=== PATIENT | female | born 1940 | race Caucasian/White ===

== ENCOUNTER 2017-11-18 12:11 | Outpatient (REF) | payer MEDICARE, MEDICAID, SELFPAY | END 2017-11-18 12:31 | LOC: LBN 12:11 | PROVIDERS: PCP Internal Medicine; Visit Provider Nurse Practitioner Family | DX: N39.0 Urinary tract infection, site not specified (principal) | CPT/HCPCS: 87077; 87086; 87186 ==

== ENCOUNTER 2018-01-01 14:23 | Outpatient (REF) | payer MEDICARE, MEDICAID, SELFPAY ==
[2018-01-01 20:03] LABS: HGB 11.2 g/dL (12.0-15.5); Mean Corpuscular Hemoglobin 30.2 pg (27.0-33.0); Mean Corpuscular Volume 94.3 fL (80-95); Mean Platelet Volume 11.6 fL (8.0-11.0); Platelet Count 232 x1000/uL (130-400); RBC 3.71 m/cumm (4.00-5.20); RBC Distribution Width 13.5 % (11.7-14.6); White Blood Cell Count 4.48 k/cumm (4.4-10.8)
[2018-01-01 20:36] LABS: Anion Gap 8.9 mmol/L (3-11); BUN 14 mg/dL (7-18); C-Reactive Protein 0.87 mg/dL (0.0-0.3); CO2 29.1 mmol/L (21.0-32.0); Chloride 102 mmol/L (98-107); Glucose 107 mg/dL (70-100); Potassium 4.3 mmol/L (3.5-5.1); Sodium 140 mmol/L (136-145)
[2018-01-01 22:21] LABS: ESR 10 MM/HR (0-30)
== END 2018-01-01 14:43 ==
LOC: NCHCN 14:23
PROVIDERS: PCP Internal Medicine; Visit Provider Internal Medicine
DX: I87.2 Venous insufficiency (chronic) (peripheral) (principal); M48.00 Spinal stenosis, site unspecified; M31.6 Other giant cell arteritis; E11.9 Type 2 diabetes mellitus without complications
CPT/HCPCS: 80048; 85027; 85652; 86140

== ENCOUNTER 2018-03-02 18:17 | Outpatient (REF) | payer MEDICARE, MEDICAID, SELFPAY ==
[2018-03-02 19:17] LABS: HCT 35.6 % (36.0-46.0); HGB 11.4 g/dL (12.0-15.5); Mean Corpuscular Hemoglobin 30.5 pg (27.0-33.0); Mean Corpuscular Volume 95.2 fL (80-95); Mean Platelet Volume 11.7 fL (8.0-11.0); Platelet Count 232 x1000/uL (130-400); RBC 3.74 m/cumm (4.00-5.20); RBC Distribution Width 13.3 % (11.7-14.6); White Blood Cell Count 5.24 k/cumm (4.4-10.8)
[2018-03-02 20:38] LABS: ESR 7 MM/HR (0-30)
[2018-03-03 16:03] LABS: CRP, High Sensitivity 5.09 mg/L
== END 2018-03-02 18:37 ==
LOC: NCHCN 18:17
PROVIDERS: PCP Internal Medicine; Visit Provider Internal Medicine
DX: M31.6 Other giant cell arteritis (principal)
CPT/HCPCS: 85027; 85652; 86141

== ENCOUNTER 2018-07-30 15:24 | Outpatient (REF) | payer MEDICARE, MEDICAID, SELFPAY ==
[2018-07-30 18:55] LABS: ALT 17 U/L (12-78); Anion Gap 11.1 mmol/L (3-11); BUN 23 mg/dL (7-18); CO2 26.9 mmol/L (21.0-32.0); CREATININE 1.03 mg/dL (0.55-1.02); Calcium 8.9 mg/dL (8.5-10.1); Chloride 100 mmol/L (98-107); Estimated GFR 51.82 (mL/min/1.73m2); Glucose 114 mg/dL (70-100); LDL CHOLESTEROL 78 mg/dL (<100); Potassium 4.6 mmol/L (3.5-5.1); Sodium 138 mmol/L (136-145)
[2018-07-30 19:16] LABS: C-Reactive Protein 0.38 mg/dL (0.0-0.3)
[2018-07-30 19:36] LABS: ESR 8 MM/HR (0-30)
== END 2018-07-30 15:44 ==
LOC: NCHCN 15:24
PROVIDERS: PCP Internal Medicine; Visit Provider Internal Medicine
DX: E11.9 Type 2 diabetes mellitus without complications (principal); M31.6 Other giant cell arteritis; I87.2 Venous insufficiency (chronic) (peripheral); J40 Bronchitis, not specified as acute or chronic
CPT/HCPCS: 80048; 83721; 85652; 84460; 86140

== ENCOUNTER 2018-10-23 15:21 | Outpatient (REF) | payer MEDICARE, MEDICAID, SELFPAY ==
[2018-10-23 20:10] LABS: HCT 36.9 % (36.0-46.0); HGB 11.8 g/dL (12.0-15.5); Mean Corpuscular Hemoglobin 30.2 pg (27.0-33.0); Mean Corpuscular Volume 94.4 fL (80-95); Mean Platelet Volume 11.5 fL (8.0-11.0); Platelet Count 280 x1000/uL (130-400); RBC 3.91 m/cumm (4.00-5.20); RBC Distribution Width 12.9 % (11.7-14.6); White Blood Cell Count 5.92 k/cumm (4.4-10.8)
[2018-10-23 20:18] LABS: Anion Gap 9.3 mmol/L (3-11); BUN 7 mg/dL (7-18); C-Reactive Protein 1.47 mg/dL (0.0-0.3); CO2 26.7 mmol/L (21.0-32.0); CREATININE 1.09 mg/dL (0.55-1.02); Calcium 8.8 mg/dL (8.5-10.1); Chloride 102 mmol/L (98-107); Estimated GFR 48.55 (mL/min/1.73m2); Glucose 106 mg/dL (70-100); Potassium 4.8 mmol/L (3.5-5.1); Sodium 138 mmol/L (136-145); TSH 1.52 uIU/mL (0.36-3.74)
== END 2018-10-23 15:41 ==
LOC: NCHCN 15:21
PROVIDERS: PCP Internal Medicine; Visit Provider Internal Medicine
DX: M17.9 Osteoarthritis of knee, unspecified (principal); M31.6 Other giant cell arteritis; M48.061 Spinal stenosis, lumbar region without neurogenic claudication; E11.9 Type 2 diabetes mellitus without complications
CPT/HCPCS: 80048; 85027; 84443; 86140

== ENCOUNTER 2018-11-06 14:51 | Outpatient (REF) | payer MEDICARE, MEDICAID, SELFPAY | END 2018-11-06 15:11 | LOC: NCHCN 14:51 | PROVIDERS: PCP Internal Medicine; Visit Provider Internal Medicine | DX: R35.0 Frequency of micturition (principal) | CPT/HCPCS: 87077; 87086; 87186 ==

== ENCOUNTER 2018-12-10 12:12 | Outpatient (REF) | payer MEDICARE, MEDICAID, SELFPAY ==
[2018-12-10 19:08] LABS: HCT 36.6 % (36.0-46.0); HGB 11.8 g/dL (12.0-15.5); Mean Corp. HGB Concentration 32.2 g/dL (32.0-36.0); Mean Corpuscular Hemoglobin 30.5 pg (27.0-33.0); Mean Corpuscular Volume 94.6 fL (80-95); Mean Platelet Volume 10.8 fL (8.0-11.0); Platelet Count 285 x1000/uL (130-400); RBC 3.87 m/cumm (4.00-5.20); RBC Distribution Width 13.7 % (11.7-14.6); White Blood Cell Count 8.15 k/cumm (4.4-10.8)
[2018-12-10 19:55] LABS: ESR 12 mm/hr (0-30)
== END 2018-12-10 12:32 ==
LOC: NCHCN 12:12
PROVIDERS: PCP Internal Medicine; Visit Provider Internal Medicine
DX: M06.9 Rheumatoid arthritis, unspecified (principal)
CPT/HCPCS: 85027; 85652; 86140

== ENCOUNTER 2019-01-12 08:41 | Outpatient (REF) | payer MEDICARE, MEDICAID, SELFPAY | END 2019-01-12 09:01 | LOC: NCHCN 08:41 | PROVIDERS: PCP Internal Medicine; Visit Provider Nurse Practitioner Family | DX: N39.0 Urinary tract infection, site not specified (principal) | CPT/HCPCS: 87077; 87086; 87186 ==

== ENCOUNTER 2019-04-07 17:26 | Outpatient (REF) | payer MEDICARE, MEDICAID, SELFPAY ==
[2019-04-07 20:39] LABS: Bilirubin Small (Negative); Blood Large (Negative); Clarity Cloudy (Clear); Glucose Negative (Negative); Ketones Trace mg/dL (Negative); Leukocyte Esterase Negative (Negative); Nitrite Negative (Negative); Specific Gravity >= 1.030 (1.005-1.025); Urobilinogen 0.2 EU/dL (Up TO 0.2)
[2019-04-07 20:52] LABS: WBC 0-2 HPF (0-5)
[2019-04-07 20:56] LABS: Crystals Many Calcium Oxalate HPF (Negative)
[2019-04-07 20:57] LABS: C & S Indicated? No
== END 2019-04-07 17:46 ==
LOC: LBN 17:26
PROVIDERS: PCP Internal Medicine; Visit Provider Obstetrics & Gynecology Gynecology
DX: N39.0 Urinary tract infection, site not specified (principal)
CPT/HCPCS: 81003; 81015

== ENCOUNTER 2019-04-15 22:10 | Outpatient (REF) | payer MEDICARE, MEDICAID, SELFPAY ==
[2019-04-15 19:57] LABS: C-Reactive Protein 3.89 mg/dL (0.0-0.3)
[2019-04-15 20:50] LABS: ESR 19 mm/hr (0-30)
== END 2019-04-15 22:30 ==
LOC: NCHCN 22:10
PROVIDERS: PCP Internal Medicine; Visit Provider Internal Medicine
DX: M35.3 Polymyalgia rheumatica (principal)
CPT/HCPCS: 85652; 86140

== ENCOUNTER 2019-07-07 13:44 | Outpatient (REF) | payer MEDICARE, MEDICAID, SELFPAY ==
[2019-07-07 19:17] LABS: HCT 34.4 % (36.0-46.0); HGB 11.2 g/dL (12.0-15.5); Mean Corp. HGB Concentration 32.6 g/dL (32.0-36.0); Mean Corpuscular Hemoglobin 30.5 pg (27.0-33.0); Mean Corpuscular Volume 93.7 fL (80-95); Mean Platelet Volume 11.2 fL (8.0-11.0); Platelet Count 283 x1000/uL (130-400); RBC 3.67 m/cumm (4.00-5.20); RBC Distribution Width 13.7 % (11.7-14.6); White Blood Cell Count 7.01 k/cumm (4.4-10.8)
[2019-07-07 20:02] LABS: ESR 20 mm/hr (0-30)
[2019-07-07 20:26] LABS: Anion Gap 5.2 mmol/L (3-11); BUN 11 mg/dL (7-18); C-Reactive Protein 3.22 mg/dL (0.0-0.3); CO2 29.8 mmol/L (21.0-32.0); CREATININE 0.85 mg/dL (0.55-1.02); Calcium 8.9 mg/dL (8.5-10.1); Chloride 102 mmol/L (98-107); Glucose 149 mg/dL (74-106); Potassium 4.7 mmol/L (3.5-5.1); Sodium 137 mmol/L (136-145)
== END 2019-07-07 14:04 ==
LOC: NCHCN 13:44
PROVIDERS: PCP Internal Medicine; Visit Provider Internal Medicine
DX: M35.3 Polymyalgia rheumatica (principal); E11.9 Type 2 diabetes mellitus without complications; I48.0 Paroxysmal atrial fibrillation
CPT/HCPCS: 80048; 85027; 85652; 86140

== ENCOUNTER 2019-11-08 21:24 | Outpatient (REF) | payer MEDICARE, MEDICAID, SELFPAY ==
[2019-11-08 19:59] LABS: C-Reactive Protein 1.11 mg/dL (0.0-0.3); CREATININE 0.81 mg/dL (0.55-1.02)
[2019-11-08 20:39] LABS: ESR 13 mm/hr (0-30)
== END 2019-11-08 21:44 ==
LOC: NCHCN 21:24
PROVIDERS: PCP Internal Medicine; Visit Provider Internal Medicine
DX: S32.010A Wedge compression fracture of first lumbar vertebra, initial encounter for closed fracture (principal); I10 Essential (primary) hypertension; E11.9 Type 2 diabetes mellitus without complications
CPT/HCPCS: 85652; 82565; 86140

== ENCOUNTER 2019-12-03 10:31 | Outpatient (REF) | payer MEDICARE, MEDICAID, SELFPAY ==
[2019-12-03 19:09] LABS: Anion Gap 7.1 mmol/L (3-11); BUN 14 mg/dL (7-18); C-Reactive Protein 0.72 mg/dL (0.0-0.3); CO2 31.9 mmol/L (21.0-32.0); CREATININE 0.99 mg/dL (0.55-1.02); Chloride 102 mmol/L (98-107); Estimated GFR 53.97 (mL/min/1.73m2); Glucose 151 mg/dL (74-106); Magnesium 1.8 mg/dL (1.8-2.4); PHOSPHORUS 4.2 mg/dL (2.6-4.7); Sodium 141 mmol/L (136-145)
== END 2019-12-03 10:51 ==
LOC: NCHCN 10:31
PROVIDERS: PCP Internal Medicine; Visit Provider Internal Medicine
DX: M35.3 Polymyalgia rheumatica (principal); M81.8 Other osteoporosis without current pathological fracture; Z51.81 Encounter for therapeutic drug level monitoring; Z79.899 Other long term (current) drug therapy; I10 Essential (primary) hypertension
CPT/HCPCS: 80048; 80069; 83735; 86140

== ENCOUNTER 2019-12-09 14:55 | Outpatient (REF) | payer MEDICARE, SELFPAY ==
[2019-12-09 19:09] LABS: HCT 38.6 % (36.0-46.0); HGB 12.1 g/dL (11.2-15.7); MCH 30.3 pg (27.0-33.0); MCHC 31.3 % (32.0-36.0); MCV 96.5 fL (80-95); MPV 11.2 fL (8.0-11.0); Platelet Count 243 10^3/uL (130-400); RDW 13.2 % (11.7-14.6); RDW-SD 47.1 fL; WBC 6.71 10^3/uL (4.4-10.8)
[2019-12-09 19:45] LABS: ESR 4 mm/hr (0-30)
== END 2019-12-09 15:15 ==
LOC: NCHCN 14:55
PROVIDERS: PCP Internal Medicine; Visit Provider Internal Medicine
DX: R01.1 Cardiac murmur, unspecified (principal)
CPT/HCPCS: 85027; 85652

== ENCOUNTER 2020-07-13 20:33 | Outpatient (REF) | payer MEDICARE, SELFPAY ==
[2020-07-13 18:28] LABS: ESR 14 mm/hr (0-30); HCT 28.9 % (36.0-46.0); HGB 9.2 g/dL (11.2-15.7); MCH 29.7 pg (27.0-33.0); MCHC 31.8 % (32.0-36.0); MCV 93.2 fL (80-95); MPV 10.3 fL (8.0-11.0); Platelet Count 324 10^3/uL (130-400); RDW 13.9 % (11.7-14.6); RDW-SD 47.1 fL; WBC 5.24 10^3/uL (4.4-10.8)
[2020-07-13 18:56] LABS: C-Reactive Protein 10.63 mg/dL (0.0-0.3)
== END 2020-07-13 20:34 | disposition home or self-care (01) ==
LOC: NCHCN 20:33
PROVIDERS: PCP Internal Medicine; Visit Provider Internal Medicine
DX: M35.3 Polymyalgia rheumatica (principal); I10 Essential (primary) hypertension; E11.9 Type 2 diabetes mellitus without complications; I35.0 Nonrheumatic aortic (valve) stenosis
CPT/HCPCS: 85027; 85652; 86140

== ENCOUNTER 2020-08-03 15:06 | Outpatient (REF) | payer MEDICARE, SELFPAY ==
[2020-08-03 18:28] LABS: ESR 9 mm/hr (0-30); HCT 30.2 % (36.0-46.0); HGB 9.6 g/dL (11.2-15.7); MCH 30.1 pg (27.0-33.0); MCHC 31.8 % (32.0-36.0); MCV 94.7 fL (80-95); MPV 10.5 fL (8.0-11.0); Platelet Count 288 10^3/uL (130-400); RBC 3.19 10^6/uL (3.93-5.22); RDW 14.4 % (11.7-14.6); RDW-SD 49.3 fL; Reticulocyte 1.7 % (0.5-2.4); WBC 5.97 10^3/uL (4.4-10.8)
[2020-08-03 18:41] LABS: C-Reactive Protein 7.33 mg/dL (0.0-0.3)
[2020-08-03 19:05] LABS: Ferritin 400 ng/mL (8-252)
[2020-08-03 19:16] LABS: Iron 24 ug/dL (50-170); Total Iron Binding Capacity 290 ug/dL (250-450); Transferrin Sat 8 % (15-50)
== END 2020-08-03 15:07 | disposition home or self-care (01) ==
LOC: NCHCN 15:06
PROVIDERS: PCP Internal Medicine; Visit Provider Internal Medicine
DX: D64.9 Anemia, unspecified (principal); M35.3 Polymyalgia rheumatica
CPT/HCPCS: 85027; 85652; 82728; 83540; 83550; 85045; 86140

== ENCOUNTER 2020-10-11 17:13 | Outpatient (REF) | payer MEDICARE, SELFPAY ==
[2020-10-11 20:14] LABS: HCT 31.3 % (36.0-46.0); HGB 9.9 g/dL (11.2-15.7); MCH 29.9 pg (27.0-33.0); MCHC 31.6 % (32.0-36.0); MCV 94.6 fL (80-95); MPV 10.3 fL (8.0-11.0); Platelet Count 320 10^3/uL (130-400); RBC 3.31 10^6/uL (3.93-5.22); RDW 13.9 % (11.7-14.6); RDW-SD 48.2 fL; WBC 5.62 10^3/uL (4.4-10.8)
[2020-10-11 20:25] LABS: Iron 30 ug/dL (50-170); Total Iron Binding Capacity 313 ug/dL (250-450); Transferrin Sat 10 % (15-50)
[2020-10-11 20:40] LABS: ALT 10 U/L (14-59); AST 10 U/L (15-37); Albumin 3.7 g/dL (3.4-5.0); Alkaline Phosphatase 72 U/L (46-116); Bilirubin, Total 0.6 mg/dL (0.2-1.0); Total Protein 6.6 g/dL (6.4-8.2)
[2020-10-11 20:57] LABS: Bilirubin, Direct 0.2 mg/dL (0.0-0.2); C-Reactive Protein 8.79 mg/dL (0.0-0.3)
== END 2020-10-11 17:14 | disposition home or self-care (01) ==
LOC: NCHCN 17:13
PROVIDERS: PCP Internal Medicine; Visit Provider Internal Medicine
DX: D64.9 Anemia, unspecified (principal)
CPT/HCPCS: 80076; 85027; 83540; 83550; 86140

== ENCOUNTER 2020-12-18 10:53 | Outpatient (REF) | payer MEDICARE, SELFPAY ==
[2020-12-18 20:02] LABS: Iron 62 ug/dL (50-170); Total Iron Binding Capacity 313 ug/dL (250-450); Transferrin Sat 20 % (15-50)
[2020-12-18 20:31] LABS: HCT 33.6 % (36.0-46.0); HGB 10.5 g/dL (11.2-15.7); MCH 29.6 pg (27.0-33.0); MCHC 31.3 % (32.0-36.0); MCV 94.6 fL (80-95); MPV 11.1 fL (8.0-11.0); Platelet Count 257 10^3/uL (130-400); RBC 3.55 10^6/uL (3.93-5.22); RDW 13.7 % (11.7-14.6); WBC 6.87 10^3/uL (4.4-10.8)
== END 2020-12-18 10:54 | disposition home or self-care (01) ==
LOC: NCHCN 10:53
PROVIDERS: PCP Internal Medicine; Visit Provider Nurse Practitioner Family
DX: D64.9 Anemia, unspecified (principal); R31.9 Hematuria, unspecified
CPT/HCPCS: 85027; 87077; 83540; 83550; 87086; 87186

== ENCOUNTER 2021-01-13 00:09 | Outpatient (REF) | payer MEDICARE, SELFPAY ==
[2021-01-11 19:59] LABS: ALT 12 U/L (14-59); Anion Gap 8.7 mmol/L (3-11); BUN 15 mg/dL (7-18); CO2 29.3 mmol/L (21.0-32.0); CREATININE 0.7 mg/dL (0.55-1.02); Calcium 8.9 mg/dL (8.5-10.1); Chloride 103 mmol/L (98-107); Glucose 133 mg/dL (74-106); LDL CHOLESTEROL 72 mg/dL (<100); Magnesium 1.8 mg/dL (1.8-2.4); Potassium 4.1 mmol/L (3.5-5.1); Sodium 141 mmol/L (136-145)
[2021-01-11 20:35] LABS: NT-proBNP 3514 pg/mL (<300)
== END 2021-01-13 00:10 | disposition home or self-care (01) ==
LOC: NCHCN 00:09
PROVIDERS: PCP Internal Medicine; Visit Provider Internal Medicine
DX: E11.9 Type 2 diabetes mellitus without complications (principal); I10 Essential (primary) hypertension; I35.0 Nonrheumatic aortic (valve) stenosis; M35.3 Polymyalgia rheumatica
CPT/HCPCS: 80048; 83721; 83735; 83880; 84460; 86140

== ENCOUNTER 2021-02-01 17:43 | Outpatient (REF) | payer MEDICARE, SELFPAY ==
[2021-02-01 20:08] LABS: Bilirubin Negative (Negative); Blood Large (Negative); Clarity Cloudy (Clear); Glucose Negative (Negative); Ketones Trace mg/dL (Negative); Leukocyte Esterase Small (Negative); Nitrite Negative (Negative); Specific Gravity >= 1.030 (1.005-1.025); Urobilinogen 0.2 EU/dL (Up TO 0.2); pH 5.5 (5-8)
[2021-02-01 20:20] LABS: Bacteria Many HPF (Negative); C & S Indicated? C&S Done As Ordered; Casts Negative LPF (Negative); Crystals Negative HPF (Negative); Epithelial Cells Rare HPF (Negative); Mucus Moderate (Negative)
[2021-02-03 18:25] LABS: COVID-19 RT-PCR UVMMC Result Negative (Negative)
== END 2021-02-01 17:44 | disposition home or self-care (01) ==
LOC: NCHCN 17:43
PROVIDERS: PCP Internal Medicine; Visit Provider Internal Medicine
DX: R31.9 Hematuria, unspecified (principal); N39.0 Urinary tract infection, site not specified; R53.83 Other fatigue; Z20.822 Contact with and (suspected) exposure to COVID-19
CPT/HCPCS: 87077; U0003; 81003; 81015; 87086; 87186

== ENCOUNTER 2021-05-28 19:27 | Outpatient (REF) | payer MEDICARE, MEDICAID, SELFPAY ==
[2021-05-28 19:28] LABS: HCT 30.9 % (36.0-46.0); HGB 9.7 g/dL (11.2-15.7); MCH 29.8 pg (27.0-33.0); MCHC 31.4 % (32.0-36.0); MCV 94.8 fL (80-95); MPV 10.6 fL (8.0-11.0); Nucleated RBC 0 %; Platelet Count 311 10^3/uL (130-400); RBC 3.26 10^6/uL (3.93-5.22); RDW 13.7 % (11.7-14.6); RDW-SD 47.7 fL; WBC 5.92 10^3/uL (4.4-10.8)
[2021-05-28 19:32] LABS: ESR 11 mm/hr (0-30)
[2021-05-28 19:48] LABS: Anion Gap 10.4 mmol/L (3-11); BUN 15 mg/dL (7-18); C-Reactive Protein 6.23 mg/dL (0.0-0.3); CO2 27.6 mmol/L (21.0-32.0); CREATININE 0.7 mg/dL (0.55-1.02); Calcium 8.9 mg/dL (8.5-10.1); Chloride 103 mmol/L (98-107); Glucose 177 mg/dL (74-106); Potassium 4.3 mmol/L (3.5-5.1); Sodium 141 mmol/L (136-145)
[2021-05-28 20:26] LABS: Absolute Lymphocyte Count 1.12 10^3/uL (1.2-3.4); Absolute Neutrophil Count 3.37 10^3/uL (1.2-6.7)
[2021-05-28 20:27] LABS: Absolute Monocyte Count 1.42 10^3/uL (0.1-0.8); Diff Comment Manual Differential
[2021-05-28 20:28] LABS: Poikilocytes 1+
== END 2021-05-28 19:28 | disposition home or self-care (01) ==
LOC: NCHCN 19:27
PROVIDERS: PCP Internal Medicine; Visit Provider Internal Medicine
DX: D64.9 Anemia, unspecified (principal); M35.3 Polymyalgia rheumatica
CPT/HCPCS: 80048; 85652; 85025; 86140

== ENCOUNTER 2021-06-01 16:07 | Outpatient (REF) | payer MEDICARE, MEDICAID, SELFPAY ==
[2021-06-01 19:18] LABS: Iron 28 ug/dL (50-170); Total Iron Binding Capacity 285 ug/dL (250-450); Transferrin Sat 10 % (15-50)
[2021-06-01 19:33] LABS: Ferritin 329 ng/mL (8-252)
== END 2021-06-01 16:08 | disposition home or self-care (01) ==
LOC: NCHCN 16:07
PROVIDERS: PCP Internal Medicine; Visit Provider Internal Medicine
DX: D64.9 Anemia, unspecified (principal)
CPT/HCPCS: 82728; 83540; 83550

== ENCOUNTER 2021-09-25 13:50 | Outpatient (REF) | payer MEDICARE, MEDICAID, SELFPAY ==
[2021-09-25 18:59] LABS: Anion Gap 7.3 mmol/L (3-11); BUN 9 mg/dL (7-18); CO2 28.7 mmol/L (21.0-32.0); CREATININE 0.9 mg/dL (0.55-1.02); Calcium 9.2 mg/dL (8.5-10.1); Chloride 99 mmol/L (98-107); Glucose 170 mg/dL (74-106); Potassium 4.2 mmol/L (3.5-5.1); Sodium 135 mmol/L (136-145)
== END 2021-09-25 13:51 | disposition home or self-care (01) ==
LOC: NCHCN 13:50
PROVIDERS: PCP Internal Medicine; Visit Provider Physician Assistant
DX: U07.1 COVID-19 (principal)
CPT/HCPCS: 80048

== ENCOUNTER 2021-10-30 20:00 | Outpatient (REF) | payer MEDICARE, MEDICAID, SELFPAY | END 2021-10-30 20:01 | disposition home or self-care (01) | LOC: NCHCN 20:00 | PROVIDERS: PCP Internal Medicine; Visit Provider Physician Assistant | DX: N39.0 Urinary tract infection, site not specified (principal) | CPT/HCPCS: 87086 ==

== ENCOUNTER 2021-11-08 15:28 | Outpatient (REF) | payer MEDICARE, MEDICAID, SELFPAY ==
[2021-11-08 19:49] LABS: Bacteria Rare HPF (Negative); C & S Indicated? C&S Done As Ordered; Casts Negative LPF (Negative); Crystals Negative HPF (Negative); Epithelial Cells Few HPF (Negative); Mucus Negative (Negative); WBC 0-2 HPF (0-5)
== END 2021-11-08 15:29 | disposition home or self-care (01) ==
LOC: NCHCN 15:28
PROVIDERS: PCP Internal Medicine; Visit Provider Physician Assistant
DX: R31.9 Hematuria, unspecified (principal); R30.0 Dysuria
CPT/HCPCS: 81015; 87086

== ENCOUNTER → 2022-01-16 12:49 | Outpatient (BNVA) | payer MEDICARE, MEDICAID, SELFPAY | PROVIDERS: PCP Internal Medicine; Referring Provider Internal Medicine; Visit Provider Nurse Practitioner Gerontology | DX: Z87.440 Personal history of urinary (tract) infections (principal); R31.29 Other microscopic hematuria | CPT/HCPCS: 99204 ==

== ENCOUNTER 2022-05-03 15:50 | Outpatient (REF) | payer MEDICARE, MEDICAID, SELFPAY ==
[2022-05-03 19:19] LABS: Absolute Basophil Count 0.02 10^3/uL (0.0-0.2); Absolute Eosinophil Count 0.02 10^3/uL (0.0-0.7); Absolute Lymphocyte Count 1.13 10^3/uL (1.2-3.4); Absolute Monocyte Count 0.88 10^3/uL (0.1-0.8); Absolute Neutrophil Count 5.26 10^3/uL (1.2-6.7); Basophils % 0.3; Eosinophils % 0.3; HCT 33.3 % (36.0-46.0); HGB 10.2 g/dL (11.2-15.7); Immature Grans % 1.3; Lymphocytes % 15.2; MCH 28.1 pg (27.0-33.0); MCHC 30.6 % (32.0-36.0); MCV 92 fL (80-95); MPV 10.9 fL (8.0-11.0); Monocytes % 11.9; Platelet Count 346 10^3/uL (130-400); RBC 3.63 10^6/uL (3.93-5.22); RDW 14.5 % (11.7-14.6); RDW-SD 48.4 fL; WBC 7.41 10^3/uL (4.4-10.8)
[2022-05-03 19:33] LABS: ALT 12 U/L (14-59); BUN 22 mg/dL (7-18); C-Reactive Protein 6.68 mg/dL (0.0-0.3); CREATININE 0.9 mg/dL (0.55-1.02); Calcium 9.1 mg/dL (8.5-10.1); Chloride 104 mmol/L (98-107); Creatine Kinase 49 U/L (26-192); Estimated GFR 63.83 (mL/min/1.73m2); Glucose 248 mg/dL (74-106); Potassium 4.1 mmol/L (3.5-5.1); Sodium 142 mmol/L (136-145)
[2022-05-03 19:46] LABS: Calculated LDL 56 mg/dL (<100); Cholesterol 134 mg/dL (<200); HDL Cholesterol 46 mg/dL (40-60); Triglyceride 164 mg/dL (<150)
== END 2022-05-03 15:51 | disposition home or self-care (01) ==
LOC: NCHCN 15:50
PROVIDERS: PCP Internal Medicine; Visit Provider Internal Medicine
DX: M31.6 Other giant cell arteritis (principal)
CPT/HCPCS: 80048; 80061; 82550; 84460; 85025; 86140

== ENCOUNTER 2022-08-13 12:30 | Outpatient (REF) | payer MEDICARE, MEDICAID, SELFPAY | END 2022-08-13 12:31 | disposition home or self-care (01) | LOC: NCHCN 12:30 | PROVIDERS: PCP Internal Medicine; Visit Provider Physician Assistant | DX: N39.0 Urinary tract infection, site not specified (principal) | CPT/HCPCS: 87077; 87086; 87186 ==

== ENCOUNTER → 2022-09-26 14:45 | Outpatient (BNVA) | payer MEDICARE, MEDICAID, SELFPAY | PROVIDERS: PCP Internal Medicine; Referring Provider Internal Medicine; Visit Provider Nurse Practitioner Gerontology | DX: R31.29 Other microscopic hematuria (principal); I11.0 Hypertensive heart disease with heart failure; I50.9 Heart failure, unspecified; E11.9 Type 2 diabetes mellitus without complications | CPT/HCPCS: 81003; 99213 ==

== ENCOUNTER 2022-09-26 15:31 | Outpatient (REF) | payer MEDICARE, MEDICAID, SELFPAY ==
--- NOTE | 2022-09-26 15:10 | PAPNONF_PTH ---
PATIENT: Yeimy Caputo LOC: [facility] U#:[id number] AGE/SX: 81/F ROOM: RE09/26/[address]: Wanda Mccabe DNP : 1940 BED: DIS: 09/26/2022 SPEC #: [id number] RECD: 09/27/22 12:51 STATUS: DEREK RESuzie #: [id number] SHRUTHI: 09/26/22 15:[address]: Wanda Mccabe DEPT: [facility] Cytology RECD BY: Ifrah Gross ENTERED: 09/27/22 12:54 SP TYPE: PAPANTIONETTE TREADWELL DR: Edwin Rosales Tissues: 1 - BODY FLUID CYTO(SPUTUM/URINE)[facility] Procedures: BODY FLUID CYTO(URINE/SPUTUM) Comments: [id number] (TV URINE=45cc, TV CYTOLYT=45cc, TV COMBINED=90cc) (REFRIGERATED)
== END 2022-09-26 15:32 | disposition home or self-care (01) ==
LOC: LBN 15:31
PROVIDERS: PCP Internal Medicine; Visit Provider Nurse Practitioner Gerontology
DX: R31.29 Other microscopic hematuria (principal); Z87.440 Personal history of urinary (tract) infections; N39.46 Mixed incontinence
CPT/HCPCS: 88104

== ENCOUNTER 2023-02-19 20:42 | Outpatient (REF) | payer MEDICARE, MEDICAID, SELFPAY ==
[2023-02-19 21:40] LABS: HCT 36.6 % (36.0-46.0); HGB 11.3 g/dL (11.2-15.7); MCH 29.7 pg (27.0-33.0); MCHC 30.9 % (32.0-36.0); MCV 96 fL (80-95); MPV 10.6 fL (8.0-11.0); Platelet Count 315 10^3/uL (130-400); RBC 3.81 10^6/uL (3.93-5.22); RDW 14.9 % (11.7-14.6); RDW-SD 52.2 fL; WBC 9.02 10^3/uL (4.4-10.8)
[2023-02-19 22:04] LABS: Anion Gap 9.1 mmol/L (3-11); BUN 13 mg/dL (7-18); C-Reactive Protein 3.55 mg/dL (0.0-0.3); CO2 28.9 mmol/L (21.0-32.0); CREATININE 0.9 mg/dL (0.55-1.02); Calcium 9.2 mg/dL (8.5-10.1); Chloride 102 mmol/L (98-107); Estimated GFR 63.43 (mL/min/1.73m2); Glucose 117 mg/dL (74-106); Potassium 4.1 mmol/L (3.5-5.1); Sodium 140 mmol/L (136-145)
[2023-02-19 22:21] LABS: Hemoglobin A1C 7.3 % (<5.7)
== END 2023-02-19 20:43 | disposition home or self-care (01) ==
LOC: NCHCN 20:42
PROVIDERS: PCP Internal Medicine; Visit Provider Internal Medicine
DX: E11.9 Type 2 diabetes mellitus without complications (principal); D64.9 Anemia, unspecified; M35.3 Polymyalgia rheumatica
CPT/HCPCS: 80048; 85027; 83036; 86140

== ENCOUNTER 2023-07-31 21:50 | Outpatient (REF) | payer MEDICARE, MEDICAID, SELFPAY ==
[2023-07-31 18:57] LABS: ESR 6 mm/hr (0-30)
[2023-07-31 19:05] LABS: C-Reactive Protein 6.61 mg/dL (<or=0.5)
== END 2023-07-31 21:51 | disposition home or self-care (01) ==
LOC: NCHCN 21:50
PROVIDERS: PCP Internal Medicine; Visit Provider Internal Medicine
DX: M35.3 Polymyalgia rheumatica (principal)
CPT/HCPCS: 85652; 86140

== ENCOUNTER 2023-10-23 17:04 | Outpatient (REF) | payer MEDICARE, MEDICAID, SELFPAY ==
[2023-10-23 19:42] LABS: HCT 32.4 % (36.0-46.0); HGB 10.1 g/dL (11.2-15.7); MCH 30.3 pg (27.0-33.0); MCHC 31.2 % (32.0-36.0); MCV 97 fL (80-95); MPV 10.9 fL (8.0-11.0); Platelet Count 290 10^3/uL (130-400); RBC 3.33 10^6/uL (3.93-5.22); RDW 15.6 % (11.7-14.6); WBC 6.89 10^3/uL (4.4-10.8)
[2023-10-23 19:48] LABS: ALT 11 U/L (14-59); AST 13 U/L (15-37); Albumin 3.9 g/dL (3.4-5.0); Alkaline Phosphatase 72 U/L (46-116); Anion Gap 7.7 mmol/L (3-11); BUN 12 mg/dL (7-18); Bilirubin, Total 0.56 mg/dL (0.2-1.0); C-Reactive Protein 4.56 mg/dL (<or=0.5); CO2 28.3 mmol/L (21.0-32.0); CREATININE 0.8 mg/dL (0.55-1.02); Calcium 9.1 mg/dL (8.5-10.1); Chloride 104 mmol/L (98-107); Estimated GFR 73.06 (mL/min/1.73m2); Glucose 201 mg/dL (74-106); Potassium 4.2 mmol/L (3.5-5.1); Sodium 140 mmol/L (136-145)
== END 2023-10-23 17:05 | disposition home or self-care (01) ==
LOC: NCHCN 17:04
PROVIDERS: PCP Internal Medicine; Visit Provider Internal Medicine
DX: I10 Essential (primary) hypertension (principal); M35.3 Polymyalgia rheumatica
CPT/HCPCS: 80053; 85027; 86140

== ENCOUNTER 2023-11-18 12:09 | Outpatient (REF) | payer MEDICARE, MEDICAID, SELFPAY | END 2023-11-18 12:10 | disposition home or self-care (01) | LOC: NCHCN 12:09 | PROVIDERS: PCP Internal Medicine; Visit Provider Physician Assistant | DX: N39.0 Urinary tract infection, site not specified (principal); B96.29 Other Escherichia coli [E. coli] as the cause of diseases classified elsewhere; R82.89 Other abnormal findings on cytological and histological examination of urine | CPT/HCPCS: 87077; 87086; 87186 ==

== ENCOUNTER 2024-03-24 19:02 | Outpatient (REF) | payer MEDICARE, MEDICAID, SELFPAY ==
[2024-03-24 20:09] LABS: HCT 29.2 % (36.0-46.0); HGB 9.1 g/dL (11.2-15.7); MCH 30.8 pg (27.0-33.0); MCHC 31.2 % (32.0-36.0); MCV 99 fL (80-95); MPV 11.1 fL (8.0-11.0); Platelet Count 326 10^3/uL (130-400); RBC 2.95 10^6/uL (3.93-5.22); RDW 16.2 % (11.7-14.6); RDW-SD 58.2 fL; WBC 6.77 10^3/uL (4.4-10.8)
[2024-03-24 20:47] LABS: Anion Gap 5.7 mmol/L (3-11); BUN 19 mg/dL (7-18); C-Reactive Protein 2.38 mg/dL (<or=0.5); CO2 29.3 mmol/L (21.0-32.0); CREATININE 1.1 mg/dL (0.55-1.02); Chloride 106 mmol/L (98-107); Estimated GFR 49.55 (mL/min/1.73m2); Glucose 154 mg/dL (74-106); NT-proBNP 8550 pg/mL (<300); Potassium 3.9 mmol/L (3.5-5.1); Sodium 141 mmol/L (136-145)
== END 2024-03-24 19:03 | disposition home or self-care (01) ==
LOC: NCHCN 19:02
PROVIDERS: PCP Internal Medicine; Visit Provider Internal Medicine
DX: I50.9 Heart failure, unspecified (principal)
CPT/HCPCS: 80048; 85027; 83880; 86140

== ENCOUNTER 2024-03-25 15:21 | Outpatient (REF) | payer MEDICARE, MEDICAID, SELFPAY ==
[2024-03-25 19:48] LABS: Ferritin 89 ng/mL (8-252); Iron 68 ug/dL (50-170); Total Iron Binding Capacity 352 ug/dL (250-450); Transferrin Sat 19 % (15-50)
== END 2024-03-25 15:22 | disposition home or self-care (01) ==
LOC: NCHCN 15:21
PROVIDERS: PCP Internal Medicine; Visit Provider Internal Medicine
DX: D64.9 Anemia, unspecified (principal)
CPT/HCPCS: 82728; 83540; 83550

== ENCOUNTER 2024-04-08 11:34 | Outpatient (REF) | payer MEDICARE, MEDICAID, SELFPAY ==
[2024-04-08 19:30] LABS: Bacteria Negative HPF (Negative); Bilirubin Negative (Negative); Blood Moderate (Negative); C & S Indicated? C&S Done As Ordered; Casts Negative LPF (Negative); Clarity Clear (Clear); Crystals Negative HPF (Negative); Epithelial Cells Negative HPF (Negative); Glucose Negative (Negative); Ketones Negative (Negative); Leukocyte Esterase Negative (Negative); Mucus Negative (Negative); Nitrite Negative (Negative); Other Cells Negative (Negative); Specific Gravity 1.015 (1.005-1.025); Urobilinogen 0.2 mg/dL (Up to 0.2); WBC Negative HPF (0-5)
== END 2024-04-08 11:35 | disposition home or self-care (01) ==
LOC: NCHCN 11:34
PROVIDERS: PCP Internal Medicine; Visit Provider Internal Medicine
DX: R31.9 Hematuria, unspecified (principal); D64.9 Anemia, unspecified
CPT/HCPCS: 81003; 81015; 82272; 87086

== ENCOUNTER 2024-06-18 17:50 | Outpatient (REF) | payer MEDICARE, MEDICAID, SELFPAY ==
[2024-06-18 18:54] LABS: HCT 32.6 % (36.0-46.0); HGB 10.3 g/dL (11.2-15.7); MCH 29.9 pg (27.0-33.0); MCHC 31.6 % (32.0-36.0); MCV 95 fL (80-95); MPV 11.1 fL (8.0-11.0); Platelet Count 250 10^3/uL (130-400); RBC 3.45 10^6/uL (3.93-5.22); RDW 16.1 % (11.7-14.6); RDW-SD 54.6 fL; WBC 6.64 10^3/uL (4.4-10.8)
[2024-06-18 19:15] LABS: Anion Gap 9.4 mmol/L (3-11); BUN 17 mg/dL (7-18); CO2 28.6 mmol/L (21.0-32.0); CREATININE 1.3 mg/dL (0.55-1.02); Calcium 9.7 mg/dL (8.5-10.1); Chloride 103 mmol/L (98-107); Estimated GFR 40.55 (mL/min/1.73m2); Glucose 168 mg/dL (74-106); NT-proBNP 9524 pg/mL (<300); Potassium 4.8 mmol/L (3.5-5.1); Sodium 141 mmol/L (136-145)
[2024-06-19 22:01] LABS: CRP, High Sensitivity >15.00 mg/L (See Note)
== END 2024-06-18 17:51 | disposition home or self-care (01) ==
LOC: NCHCN 17:50
PROVIDERS: PCP Internal Medicine; Visit Provider Internal Medicine
DX: D64.9 Anemia, unspecified (principal); M35.3 Polymyalgia rheumatica
CPT/HCPCS: 80048; 85027; 86141; 83880

== ENCOUNTER 2024-10-04 16:19 | Outpatient (REF) | payer MEDICARE, MEDICAID, SELFPAY ==
[2024-10-04 19:12] LABS: Digoxin 0.45 ng/mL (0.90-2.00)
[2024-10-04 19:23] LABS: Anion Gap 7.4 mmol/L (3-11); BUN 16 mg/dL (7-18); C-Reactive Protein 3.94 mg/dL (<or=0.5); CO2 28.6 mmol/L (21.0-32.0); Calcium 8.8 mg/dL (8.5-10.1); Chloride 103 mmol/L (98-107); Estimated GFR 72.61 (mL/min/1.73m2); Glucose 167 mg/dL (74-106); Magnesium 2.1 mg/dL (1.8-2.4); NT-proBNP 7929 pg/mL (<300); Potassium 4.6 mmol/L (3.5-5.1); Sodium 139 mmol/L (136-145)
== END 2024-10-04 16:20 | disposition home or self-care (01) ==
LOC: NCHCN 16:19
PROVIDERS: PCP Internal Medicine; Visit Provider Internal Medicine
DX: I50.9 Heart failure, unspecified (principal)
CPT/HCPCS: 80048; 80162; 83735; 83880; 86140

== ENCOUNTER 2024-11-12 11:42 | Outpatient (REF) | payer MEDICARE, MEDICAID, SELFPAY ==
[2024-11-12 19:29] LABS: Anion Gap 5.6 mmol/L (3-11); BUN 15 mg/dL (7-18); CO2 30.4 mmol/L (21.0-32.0); Calcium 9.0 mg/dL (8.5-10.1); Chloride 104 mmol/L (98-107); Estimated GFR 55.21 (mL/min/1.73m2); Glucose 226 mg/dL (74-106); Potassium 4.9 mmol/L (3.5-5.1); Sodium 140 mmol/L (136-145)
== END 2024-11-12 11:43 | disposition home or self-care (01) ==
LOC: NCHCN 11:42
PROVIDERS: PCP Internal Medicine; Visit Provider Internal Medicine
DX: M81.0 Age-related osteoporosis without current pathological fracture (principal)
CPT/HCPCS: 80048; 84100

== ENCOUNTER 2024-11-29 16:40 | Outpatient (REF) | payer MEDICARE, MEDICAID, SELFPAY ==
[2024-11-29 19:36] LABS: Anion Gap 8.8 mmol/L (3-11); BUN 10 mg/dL (7-18); CO2 26.2 mmol/L (21.0-32.0); Calcium 8.0 mg/dL (8.5-10.1); Chloride 104 mmol/L (98-107); Digoxin 0.36 ng/mL (0.90-2.00); Estimated GFR 84.70 (mL/min/1.73m2); Glucose 168 mg/dL (74-106); Potassium 4.3 mmol/L (3.5-5.1); Sodium 139 mmol/L (136-145)
== END 2024-11-29 16:41 | disposition home or self-care (01) ==
LOC: NCHCN 16:40
PROVIDERS: PCP Internal Medicine; Visit Provider Internal Medicine
DX: I48.20 Chronic atrial fibrillation, unspecified (principal)
CPT/HCPCS: 80048; 80162

== ENCOUNTER 2025-01-04 17:21 | Outpatient (REF) | payer MEDICARE, MEDICAID, SELFPAY ==
[2025-01-04 19:16] LABS: HCT 31.0 % (36.0-46.0); HGB 9.8 g/dL (11.2-15.7); MCH 29.6 pg (27.0-33.0); MCHC 31.6 % (32.0-36.0); MCV 94 fL (80-95); MPV 10.8 fL (8.0-11.0); RBC 3.31 10^6/uL (3.93-5.22); RDW 16.2 % (11.7-14.6); RDW-SD 55.3 fL; WBC 6.29 10^3/uL (4.4-10.8)
[2025-01-04 19:35] LABS: Digoxin 1.14 ng/mL (0.80-2.00)
[2025-01-04 19:49] LABS: Immature Grans % 0.0 %
[2025-01-04 19:50] LABS: Anisocytosis 1+; Poikilocytes 1+
[2025-01-04 19:51] LABS: Platelet Count 269 10^3/uL (130-400)
[2025-01-04 19:52] LABS: Abs Immature Grans 0.00 10^3/uL (0.0-0.06)
== END 2025-01-04 17:22 | disposition home or self-care (01) ==
LOC: NCHCN 17:21
PROVIDERS: Nurse Practitioner Family; PCP Internal Medicine; Visit Provider Internal Medicine
DX: K31.89 Other diseases of stomach and duodenum (principal)
CPT/HCPCS: 80162; 85025

== ENCOUNTER 2025-01-06 16:49 | Outpatient (REF) | payer MEDICARE, MEDICAID, SELFPAY | END 2025-01-06 16:50 | disposition home or self-care (01) | LOC: NCHCN 16:49 | PROVIDERS: PCP Internal Medicine; Visit Provider Internal Medicine | DX: Z23 Encounter for immunization (principal) | CPT/HCPCS: 82272 ==